=== PATIENT | female | born 1995 | race Caucasian/White ===

== ENCOUNTER 2019-03-02 09:39 | Emergency (ER) | payer MEDICAID ==
[~2019-03-02] VITALS: Ht 154.9 cm; Wt 68.0 kg
[2019-03-02 09:40] VITALS: BP_SYST 117
[2019-03-02] MEDS ORDERED: IPRATROPIUM/ALBUTEROL SULFATE 3 ML AMPUL.NEB (DUONEB) INH ONE (11:15)
[2019-03-02] MEDS ORDERED: IBUPROFEN 600 MG TABLET PO ONE (11:15)
[2019-03-02 11:43] VITALS: BP_SYST 117
== END 2019-03-02 11:45 | disposition home or self-care (01) ==
LOC: SED 09:39
DX: J01.90 Acute sinusitis, unspecified (principal)
CPT/HCPCS: 71045; 86710; 94640; 99284; J7620; 36415